=== PATIENT | female | born 2000 | race African-American/Black ===

== ENCOUNTER 2019-11-17 20:22 | Outpatient (CLI) | payer BC, MEDICAID ==
[2019-11-17 21:04] LABS: APPEARANCE,URINE CLOUDY; BILIRUBIN,URINE NEGATIVE (NEGATIVE); COLOR,URINE YELLOW; GLUCOSE, URINE NEGATIVE (NEGATIVE); KETONES,URINE NEGATIVE (NEGATIVE); LEUKOCYTE ESTERASE,URINE LARGE (NEGATIVE); NITRITE,URINE NEGATIVE (NEGATIVE); PROTEIN,URINE NEGATIVE (NEGATIVE); URINE SPECIFIC GRAVITY 1.011; UROBILINOGEN,URINE NEGATIVE mg/dL (<2.0)
[2019-11-17 21:27] LABS: URINE AMPHETAMINES SCREEN NEGATIVE; URINE BARBITURATES SCREEN NEGATIVE; URINE BENZODIAZEPINES SCREEN NEGATIVE; URINE COCAINE SCREEN NEGATIVE; URINE MARIJUANA (THC) SCREEN NEGATIVE; URINE METHADONE SCREEN NEGATIVE; URINE PHENCYCLIDINE SCREEN NEGATIVE
--- NOTE | 2019-11-17 22:03 | Non Stress Test Report ---
Non Stress Test Datetime Report Generated by CPN: 11/17/2019 22:03 DEMOGRAPHIC EGA NST: 39.1 INDICATION Indication for Study (NST) Other: Labor Check URINE RESULTS Urine Blood - NST: Positive MONITORING Monitor Explained: Monitor Explained; Test Explained; Patient Verbalized Understanding Time on Monitor: 11/17/2019 20:50 Time off Monitor: 11/17/2019 21:35 NST Duration: 45 NST INTERVENTIONS NST Interventions: None BABY A: [id number] BABY A Movement : Present Contraction Frequency : occasional FHR Baseline : 150 Accelerations : 15X15 Decelerations : None Variability : Moderate 6-25bpm NST Review: Meets Criteria for Reactive NST NST Review and Verified By : Koki Finch RN NST Results: Reactive NST REPORT Report Trigger: Send Report
== END 2019-11-17 21:43 | disposition home or self-care (01) ==
LOC: LC 20:22
PROVIDERS: ATTEND Obstetrics & Gynecology Gynecology
DX: Z02.83 Encounter for blood-alcohol and blood-drug test (principal); O47.1 False labor at or after 37 completed weeks of gestation; Z3A.39 39 weeks gestation of pregnancy
CPT/HCPCS: 59025; 80307; 81005; 84112

== ENCOUNTER 2019-11-24 16:56 | Inpatient (IN) | payer BC ==
[2019-11-24 17:39] LABS: APPEARANCE,URINE SLIGHTLY-CLOUDY; BILIRUBIN,URINE NEGATIVE (NEGATIVE); COLOR,URINE YELLOW; GLUCOSE, URINE NEGATIVE (NEGATIVE); KETONES,URINE TRACE mg/dL (NEGATIVE); LEUKOCYTE ESTERASE,URINE LARGE (NEGATIVE); NITRITE,URINE NEGATIVE (NEGATIVE); PROTEIN,URINE NEGATIVE (NEGATIVE); URINE SPECIFIC GRAVITY 1.014; UROBILINOGEN,URINE NEGATIVE mg/dL (<2.0)
[2019-11-24 17:57] LABS: URINE AMPHETAMINES SCREEN NEGATIVE; URINE BARBITURATES SCREEN NEGATIVE; URINE BENZODIAZEPINES SCREEN NEGATIVE; URINE COCAINE SCREEN NEGATIVE; URINE MARIJUANA (THC) SCREEN NEGATIVE; URINE METHADONE SCREEN NEGATIVE; URINE PHENCYCLIDINE SCREEN NEGATIVE
[2019-11-24] MEDS ORDERED: PENICILLIN G POTASSIUM 5,000,000 UNIT in DEXTROSE 5%-WATER 100 ML IV ONE (19:51)
[2019-11-24 20:21] LABS: ABSOLUTE EOSINOPHILS # (AUTO) 0.1 10^3/uL (0.0-0.6); ABSOLUTE LYMPHOCYTES (AUTO) 2.1 10^3/uL (0.5-4.7); ABSOLUTE MONOCYTES (AUTO) 0.9 10^3/uL (0.1-1.4); ABSOLUTE NEUT (AUTO) 6.5 10^3/uL (1.7-8.2); BASOPHILS % (AUTO) 0.2 % (0-2); EOSINOPHILS % (AUTO) 0.7 % (0-6); HEMATOCRIT 37.4 % (36.0-47.0); HEMOGLOBIN 12.5 g/dL (12.0-15.5); MEAN CORPUSCULAR HEMOGLOBIN 31.3 pg (27.0-33.4); MEAN CORPUSCULAR HGB CONC 33.5 g/dL (32.0-36.0); MEAN CORPUSCULAR VOLUME 93 fl (80-97); PLATELET COUNT 203 10^3/uL (150-450); RED BLOOD COUNT 4.01 10^6/uL (3.72-5.28); RED CELL DISTRIBUTION WIDTH 15.1 % (11.5-14.0); SEGMENTED NEUTROPHILS % (AUTO) 68.1 % (42-78); TOTAL CELLS COUNTED % (AUTO) 100 %; WHITE BLOOD COUNT 9.6 10^3/uL (4.0-10.5)
[2019-11-24] MEDS ORDERED: MISOPROSTOL 0.2 MG TABLET ONE (20:29)
[2019-11-24] MEDS ORDERED: OXYTOCIN 10 UNIT/ML VIAL ONE (20:29)
[2019-11-24] MEDS ORDERED: LIDOCAINE 1% INJ-PF (10 MG/ML) 30 ML SDV ONE (20:30)
[2019-11-24] MEDS ORDERED: PENICILLIN G-K 5 MILLION UNIT VIAL ONE (20:30)
[2019-11-24] MEDS ORDERED: OXYTOCIN/0.9 % SODIUM CHLORIDE 30 UNIT/500 ML RTUINJ ONE (20:30)
[2019-11-24] MEDS ORDERED: OXYTOCIN/0.9 % SODIUM CHLORIDE 30 UNIT/500 ML RTUINJ IV PRN (20:42)
[2019-11-24] MEDS: RINGERS SOLUTION,LACTATED 1,000 ML IV PRN (20:57)
--- NOTE | 2019-11-24 23:09 | Admission Physical ---
Datetime Report Generated by CPN: 11/24/2019 23:08 CURRENT ADMISSION Chief Complaint: Uterine Contractions Indication for Induction: Post Dates Admit Impression : Term, Intrauterine Admit Impression- Other: early labor Admit Plan: Admit to Unit; Initiate Labor Augmentation Protocol ALLERGIES Medication Allergies: No Medication Allergies: No Known Allergies (11/17/2019) Latex: No Latex Allergies OBSTETRICAL HISTORY EDC: 11/23/2019 00:00 : 1 Para: 0 Term: 0 : 0 SAB: 0 IAB: 0 Ectopic: 0 Livin Cesareans: 0 VBACs: 0 Multiple Births: 0 Gestational Diabetes: No Rh Sensitization: No Incompetent Cervix: No JEFF: No Infertility: No ART Treatment: No Uterine Anomaly: No IUGR: No Hx Previous C/S: No Macrosomia: No Hx Loss/Stillborn: No PIH: No Hx : No Placenta Previa/Abruption: No Depression/PP Depression: No PTL/PROM: No Post Hemorrhage: No Current Procedures: Ultrasound Obstetrical History Comments: G1: current SEE RECORDS Alcohol: No Marijuana : No Cocaine: No Other Illicit Drugs: No Cigarettes: Never Smoker. [id number] MEDICAL HISTORY Diabetes: No Blood Transfusion: No Pulmonary Disease (Asthma, TB): Yes Breast Disease: No Hypertension: No [place] Surgery: No Heart Disease: No Hosp/Surgery: No Autoimmune Disorder: No Anesthetic Complications: No Kidney Disease: No Abnormal Pap Smear: No Neuro/Epilepsy: No Psychiatric Disorders: No Other Medical Diseases: No Hepatitis/Liver Disease: No Significant Family History: No Varicosities/Phlebitis: No Trauma/Violence : No Thyroid Dysfunction: No Medical History Comments: asthma INFECTIOUS HISTORY Gonorrhea: Yes Genital Herpes: Yes Chlamydia: Yes Tuberculosis: No Syphilis: Unknown Hepatitis: Unknown HIV/AIDS Exposure: No Rash or Viral Illness: No HPV: No Infectious History Comments: Trichamonas@ 36 weeks; HSV labia on 11/01/2019. GC/ CHlam PHYSICAL EXAM General: Normal HEENT: Normal Neurologic: Normal Thyroid: Normal Heart: Normal Lungs: Normal Breast: Normal Back: Normal Abdomen: Normal Genitourinary Exam: Normal Extremities: Normal DTRs: Normal Pelvic Type: Adequate Vital Signs: Reviewed; Within Normal Limits VAGINAL EXAM Dilatation: 3 Effacement: 50 Station: -2 MEMBRANES Pooling: Negative Membranes: Intact FETUS A EGA: 40.1 Monitoring: External US FHR- Baseline: 150 Variability: Moderate 6-25bpm Accelerations: 15X15 Decelerations: None FHR Category: Category I Estimated Weight (gm): 3700 Presentation: Vertex Admit Comment: explained to pt that she has made some change to cervix during labor check. offerred to let her go home and walk more then return versus staying and augmentating her early labor. She elects to remain for augmentation with pitocin. PLANS FOR LABOR AND DELIVERY Labor and Delivery: None Pain Management: Epidural Feeding Preference: Breast Benefit of Breast Feed Discussed: Yes Circumcision: N/A INFORMED CONSENT Signature: with User ID: [email or web address]
[2019-11-24] MEDS ORDERED: EPHEDRINE SULFATE INJ 50 MG/1 ML AMPULE ONE (23:23)
[2019-11-24] MEDS ORDERED: ROPIVACAINE HCL 0.2% INJ/PF (2 MG/ML) 20 ML SDV ONE (23:24)
[2019-11-24] MEDS ORDERED: FENTANYL/BUPIVACAINE/NS/PF 300 MCG/150 ML RTUINJ EPI ONE (23:24)
[2019-11-25] MEDS ORDERED: FENTANYL CITRATE INJ/PF 100 MCG/2 ML AMPUL ONE (00:45)
[2019-11-25] MEDS ORDERED: PENICILLIN G-K 5 MILLION UNIT VIAL ONE ×2 (01:13→05:36)
[2019-11-25] MEDS: PENICILLIN G POTASSIUM 2,500,000 UNIT in DEXTROSE 5%-WATER 50 ML IV SCH ×2 (01:25→05:44)
[2019-11-25] MEDS: RINGERS SOLUTION,LACTATED 1,000 ML IV PRN (01:26)
[2019-11-25] MEDS ORDERED: DIPH/PERTUSS(ACELL)/TETANUS VAC/PF 0.5 ML SYR (>=10YO) IM PRN (07:12)
[2019-11-25] MEDS ORDERED: PROMETHAZINE HCL 25 MG SUPP.RECT PR PRN (07:12)
[2019-11-25] MEDS ORDERED: ACETAMINOPHEN WITH CODEINE #3 TABLET PO PRN ×2 (07:12)
[2019-11-25] MEDS ORDERED: PSEUDOEPHEDRINE HCL 30 MG TABLET PO PRN (07:12)
[2019-11-25] MEDS ORDERED: DIBUCAINE 1% OINTMENT 28 GM TP PRN (07:12)
[2019-11-25] MEDS ORDERED: PROMETHAZINE HCL 25 MG TABLET PO PRN (07:12)
[2019-11-25] MEDS ORDERED: DIPHENHYDRAMINE HCL 25 MG CAPSULE PO PRN (07:12)
[2019-11-25] MEDS ORDERED: NA PHOS,M-B/NA PHOS,DI-BA (ADULT) 133 ML ENEMA PR PRN (07:12)
[2019-11-25] MEDS ORDERED: ZOLPIDEM TARTRATE 5 MG TABLET PO PRN (07:12)
[2019-11-25] MEDS ORDERED: GLYCERIN/WITCH HAZEL LEAF 1 EACH MED..WIPE TP PRN (07:12)
[2019-11-25] MEDS ORDERED: MAGNESIUM HYDROXIDE SUSP 30 ML UDCUP PO PRN (07:12)
[2019-11-25] MEDS ORDERED: PROMETHAZINE HCL INJ 25 MG/1 ML VIAL IV PRN (07:12)
[2019-11-25] MEDS ORDERED: MEASLES,MUMPS&RUBELLA VACC/PF 0.5 ML VIAL SUBCUT PRN (07:12)
[2019-11-25] MEDS ORDERED: ACETAMINOPHEN 650 MG SUPP.RECT PR PRN (07:12)
[2019-11-25] MEDS ORDERED: OXYTOCIN/0.9 % SODIUM CHLORIDE 30 UNIT/500 ML RTUINJ IV PRN (07:12)
[2019-11-25] MEDS ORDERED: BENZOCAINE/MENTHOL AEROSOL SPRAY 56 ML TOP PRN (07:12)
--- NOTE | 2019-11-25 07:30 | Warning Signs in Babies ---
VOD Warning Signs Datetime Report Generated by [facility]: 11/25/2019 07:29 VOD#608 -Warning Signs in Babies: Needs to be viewed. (11/17/2019 20:31:Alejandra Hopkins RN)
--- NOTE | 2019-11-25 10:07 | Warning Signs in Babies ---
VOD Warning Signs Datetime Report Generated by [facility]: 11/25/2019 10:07 VOD#608 -Warning Signs in Babies: Viewed with Parent(s)/Family (11/17/2019 20:31:Alejandra Hopkins RN)
--- NOTE | 2019-11-25 10:07 | Delivery Summary ---
Del Sum A-C Datetime Report Generated by CPN: 11/25/2019 10:07 DELIVERY PERSONNEL DELIVERY PERSONNEL: [id number] Delivery Doctor:: Didi Vallejo MD Labor and Delivery Nurse:: Peggy Jackson RN Nursery Nurse:: Lindsey Fuentes RN Video Game Animator/FAMILY MEDICINE PHYSICIAN: Monica Ross, ST MATERNAL INFORMATION Delivery Anesthesia: Epidural Medications After Delivery: Pitocin 30 Units in 500ml NS/D5W Estimated Blood Loss (ml): 250 Delivery QBL: 150 Maternal Complications: None LABOR SUMMARY EDC: 11/23/2019 00:00 No. Babies in Womb: 1 Attempted: No Labor Anesthesia: Epidural LABOR INFORMATION Reason for Induction: Not Applicable Onset of Labor: 11/24/2019 20:57 Complete Dilatation: 11/25/2019 04:38 Oxytocin: Augmentation Group B Beta Strep: positive Antibiotics # of Doses: 3 Antibiotics Time of Last Dose: 11/25/2019 05:44 Name of Antibiotic Given: PCN Steroids Given: None Reason Steroids Not Administered: Not Applicable MEMBRANES Membranes Rupture Method: Artificial Rupture of Membranes: 11/25/2019 04:46 Length of Rupture (hr): 2.18 Amniotic Fluid Color: Clear Amniotic Fluid Amount: Small Amniotic Fluid Odor: Normal STAGES OF LABOR Stage 1 hr: 7 Stage 1 min: 41 Stage 2 hr: 2 Stage 2 min: 19 Stage 3 hr: 0 Stage 3 min: 3 Total Time in Labor hr: 10 Total Time in Labor min: 3 VAGINAL DELIVERY Episiotomy: None Laceration #1: None Laceration Extension #1: N/A Other Laceration: labial abrasion Laceration Repair: Not Applicable Sponge Count Correct: N/A Sharps Count Correct: N/A CSECTION DELIVERY Primary Indication: N/A Secondary Indication: N/A CSection Incidence: N/A Labor: N/A Elective: N/A CSection Incision: N/A BABY A INFORMATION Infant Delivery Date/Time: 11/25/2019 06:57 Method of Delivery: Vaginal Nurse Controlled Delivery: No Born in Route : No : N/A Forceps: N/A Vacuum Extraction: N/A Shoulder Dystocia : No PRESENTATION/POSITION BABY A Presentation: Cephalic Cephalic Presentation: Vertex Vertex Position: Left Occipital Anterior Breech Presentation: N/A PLACENTA INFORMATION BABY A Placenta Delivery Time : 11/25/2019 07:00 Placenta Method of Delivery: Spontaneous Placenta Status: Delivered SCORES BABY A Heart Rate 1 min: >100 bpm Resp Effort 1 min: Good Cry Reflex Irritability 1 min: Cough or Sneeze or Pulls Away Muscle Tone 1 min: Active Motion Color 1 min: Blue/Pale Resuscitation Effort 1 min: Tactile Stimulation SCORE 1 MIN: 8 Heart Rate 5 min: >100 bpm Resp Effort 5 min: Good Cry Reflex Irritability 5 min: Cough or Sneeze or Pulls Away Muscle Tone 5 min: Active Motion Color 5 min: Body [place], Extremities Blue Resuscitation Effort 5 min: Tactile Stimulation SCORE 5 MIN: 9 INFANT INFORMATION BABY A Gestational Age at Delivery: 40.2 Gestational Status: Full Term- 39- 40.6 Weeks Infant Outcome : Liveborn Condition : Stable Infant Sex: Female IDENTIFICATION BABY A Infant Verification Date/Time: 11/25/2019 08:04 ID Band Number: [id number] Mother's Name Verified: Yes RN Verifying : Ant Hopkins RN; MckenzieSuzette Sofíawilfrido RN WEIGHT/LENGTH BABY A Birthweight (gm): 3357 Infant Weight (lb): 7 Infant Weight (oz): 6 Length (in): 19.50 Length (cm): 49.53 CORD INFORMATION BABY A No. Cord Vessels: 3 Nuchal Cord : N/A Cord Blood Taken: Yes-For Eval (Mom's Blood Type - or O+) Infant Suction: Mouth; Nose ASSESSMENT BABY A Skin to Skin: Yes BABY B INFORMATION : N/A SIGNATURES Signature: with User ID: [email or web address]
--- NOTE | 2019-11-25 10:07 | Birth Certificate Data ---
Cert Data Datetime Report Generated by CPN: 11/25/2019 10:07 CERTIFICATE DATA 47a. Care: Yes (11/17/2019 20:31:Alivia Manuel RN) 47b. Date of First Visit: 07/09/2019 00:00 (11/17/2019 20:31:Alivia Manuel RN) 47c. Date of Last Visit: 11/15/2019 00:00 (11/17/2019 20:31:Alivia Manuel RN) 48a. Number of Prev Live Births: 0 (11/17/2019 20:31:Alivia Manuel RN) 48b. Now Livin (11/17/2019 20:31:Alivia Manuel RN) 48c. Live Births Now : 0 (11/17/2019 20:31: system process) 48e. Losses: 0 (11/17/2019 20:31:Alivia Manuel RN) RISK FACTORS IN THIS 49a. Diabetes: No (11/17/2019 20:31:Alivia Manuel RN) 49b. Hypertension: No (11/17/2019 20:31:Alivia Manuel RN) 49c. Previous Births: 0 (11/17/2019 20:31:Alivia Manuel RN) 49d. Stillborns: No (11/17/2019 20:31:Alivia Manuel RN) 49d. IUGR: No (11/17/2019 20:31:Alivia Manuel RN) 49e. Infertility Treatment: No (11/17/2019 20:31:Alivia Manuel RN) 49f. Previous Cesareans: 0 (11/17/2019 20:31:Alivia Manuel RN) Mother's Height 50b. Height Inches: 62 (11/25/2019 07:09:QS system process) Mother's Weight 51b. Weight at Delivery (lbs): 196 (11/25/2019 07:09:QS system process) Infections Present/Treated 53a. Gonorrhea: Yes (11/17/2019 20:31:Alivia Manuel RN) Results this Hospital Visit : Negative (11/17/2019 20:31:Peggy Jackson RN) 53b. Syphilis: Unknown (11/17/2019 20:31:Alivia Manuel RN) 53c. Chlamydia: Yes (11/17/2019 20:31:Alivia Manuel RN) Results this Hospital Visit: Negative (11/17/2019 20:31:Peggy Jackson RN) 53d. Hepatitis B: No (Annotations: Data stored by Simin on behalf of user) (11/17/2019 20:31:Alejandra Hopkins RN) Results this Hospital Visit: Negative (11/17/2019 20:31:Alivia Manuel RN) 53e. Hepatitis C: Negative (11/17/2019 20:31:Peggy Jackson RN) 53h. Mother Tested for HBsAG: Yes (11/17/2019 20:31:Alejandra Hopkins RN) 53i. Date Tested: 05/10/2019 00:00 (11/17/2019 20:31:Peggy Jackson RN) 53j. Test Result: Negative (11/17/2019 20:31:Alivia Manuel, RN) Obstetric Procedures 54a, b, c. Obstetric Procedures: Ultrasound (11/17/2019 20:31:Alivia Goldsmithahan, RN) Onset of Labor 56a. PROM >12 Hrs: 2.18 (11/25/2019 04:46:QS system process) 56b. Precipitous Labor <3 Hrs: 10 (11/17/2019 20:31:QS system process) 56c. Prolonged Labor > 20 Hrs: 10 (11/17/2019 20:31:QS system process) 57a. Induction of Labor: Augmentation (11/17/2019 20:31:Hortensia Colin RN) 57c. Non-Vertex Presentation A: Vertex (11/17/2019 20:31:Hortensia Colin RN) 57d. Steroids - Lung Mat: None (11/17/2019 20:31:Hortensia Colin RN) 57d. Steroids - Lung Mat: Not Applicable (11/17/2019 20:31:Hortensia Colin RN) 57e. Antibiotics During Labor: 11/25/2019 05:44 (11/17/2019 20:31:Hortensia Colin RN) 57f. Mat [place] or Temp >100.4: 98.7 (11/17/2019 20:31:Alejandra Hopkins RN) 57g. Moderate/Heavy Meconium: Clear (11/25/2019 04:46:Peggy Jackson RN) 57h. Intolerance of Labor: N/A (11/17/2019 20:31:Hortensia Colin RN) : N/A (11/17/2019 20:31:Hortensia Colin RN) 57i. Epidural/Spinal Anesthesia: Epidural (11/17/2019 20:31:Hortensia Colin RN) Method of Delivery 58a. Forceps - Unsuccessful A: N/A (11/17/2019 20:31:Peggy Jackson RN) 58b. Vacuum - Unsuccessful A: N/A (11/17/2019 20:31:Peggy Jackson RN) 58c. Presentation at 58c. Presentation at - A : Vertex (11/17/2019 20:31:Hortensia Colin RN) 58c. Presentation at - A : N/A (11/17/2019 20:31:Hortensia Colin RN) 58c. Presentation at - A : Cephalic (11/25/2019 00:33:Peggy Jackson RN) Final Route and Method of Del 58d. Baby A Route/Delivery: Vaginal (11/17/2019 20:31:Hortensia Colin RN) 58e. Trial of Labor Attempted: No (11/17/2019 20:31:Hortensia Colin RN) 58e. Trial of Labor Attempted A: N/A (11/17/2019 20:31:Hortensia Colin RN) 58e. Trial of Labor Attempted B: N/A (11/17/2019 20:31:Hortensia Dixie RN) Maternal Morbidity 59b. 3rd or 4th Degree Lacs: None (11/17/2019 20:31:Didi Vallejo MD ([facility])) 59b. 3rd or 4th Degree Lacs: labial abrasion (11/17/2019 20:31:Alejandra Hopkins RN) Birthweight Baby A: 3357 (11/17/2019 20:31:Alejandra Hopkins RN) 60a. Pounds : 7 (11/17/2019 20:31:QS system process) 60b. Ounces: 6 (11/17/2019 20:31:QS system process) 61. GA at Delivery Baby A: 40.2 (11/17/2019 20:31:Hortensia Colin RN) : Full Term- 39- 40.6 Weeks (11/17/2019 20:31:QS system process) 62a. 5 Minute Baby A: 9 (11/17/2019 20:31:QS system process)
[2019-11-25] MEDS ORDERED: PRENATAL VITAMIN W DHA CAPSULE PO ONE (10:08)
[2019-11-25] MEDS ORDERED: FAMOTIDINE 20 MG TABLET ONE (10:08)
[2019-11-25] MEDS ORDERED: DOCUSATE SODIUM 100 MG CAPSULE ONE (10:08)
[2019-11-25] MEDS ORDERED: SENNOSIDES/DOCUSATE 8.6-50 MG 1 EACH TABLET ONE (10:08)
[2019-11-25] MEDS ORDERED: FERROUS SULFATE 325 MG TABLET PO ONE (10:08)
[2019-11-25] MEDS: FERROUS SULFATE 325 MG TABLET PO SCH ×2 (10:10→18:04)
[2019-11-25] MEDS: DOCUSATE SODIUM 100 MG CAPSULE PO SCH ×2 (10:10→18:04)
[2019-11-25] MEDS: FAMOTIDINE 20 MG TABLET PO SCH ×2 (10:10→22:11)
[2019-11-25] MEDS: SENNOSIDES/DOCUSATE 8.6-50 MG 1 EACH TABLET PO SCH (10:10)
[2019-11-25] MEDS: PRENATAL VITAMIN W DHA CAPSULE PO SCH (10:10)
[2019-11-25] MEDS: IBUPROFEN 800 MG TABLET PO SCH ×2 (13:55→22:11)
[2019-11-25] MEDS: VALACYCLOVIR HCL 500 MG TABLET PO SCH (13:56)
[2019-11-26] MEDS: PENICILLIN G POTASSIUM 2,500,000 UNIT in DEXTROSE 5%-WATER 50 ML IV SCH (02:21)
[2019-11-26] MEDS: IBUPROFEN 800 MG TABLET PO SCH ×3 (06:02→21:31)
[2019-11-26 07:22] LABS: HEMATOCRIT 32.3 % (36.0-47.0); HEMOGLOBIN 10.9 g/dL (12.0-15.5); MEAN CORPUSCULAR HEMOGLOBIN 31.5 pg (27.0-33.4); MEAN CORPUSCULAR HGB CONC 33.8 g/dL (32.0-36.0); MEAN CORPUSCULAR VOLUME 93 fl (80-97); PLATELET COUNT 186 10^3/uL (150-450); RED BLOOD COUNT 3.47 10^6/uL (3.72-5.28); RED CELL DISTRIBUTION WIDTH 15.2 % (11.5-14.0); WHITE BLOOD COUNT 13.8 10^3/uL (4.0-10.5)
[2019-11-26] MEDS: VALACYCLOVIR HCL 500 MG TABLET PO SCH (09:15)
[2019-11-26] MEDS: PRENATAL VITAMIN W DHA CAPSULE PO SCH (09:15)
[2019-11-26] MEDS: DOCUSATE SODIUM 100 MG CAPSULE PO SCH ×2 (09:15→17:21)
[2019-11-26] MEDS: FERROUS SULFATE 325 MG TABLET PO SCH ×2 (09:15→17:21)
[2019-11-26] MEDS: SENNOSIDES/DOCUSATE 8.6-50 MG 1 EACH TABLET PO SCH (09:16)
[2019-11-26] MEDS: FAMOTIDINE 20 MG TABLET PO SCH ×2 (09:16→21:31)
--- NOTE | 2019-11-26 12:04 | PDOC PROGRESS REPORT ---
Subjective-OB Progress Note for:: 11/26/19 - PP Day #1, doing well, O+, rubella immune, UOB, voiding Physical Exam (OB) Vital Signs: Temp Pulse Resp BP Pulse Ox 97.5 F 87 15 101/50 L 100 11/26/19 07:58 11/26/19 07:58 11/26/19 07:58 11/26/19 07:58 11/26/19 07:58 Intake & Output 11/25/19 11/26/19 11/27/19 06:59 06:59 06:59 Intake Total 560 700 Balance 560 700 Weight 89.1 kg - General General Appearance: Appears well, Alert In distress: None - PIH/Pre-Eclampsia DTR's: 2 + Clonus: Negative Headache: Absent Epigastric Pain: No Visual Changes: No - Maternal Morbidity 59. Maternal Morbidity (serious complications experinced by the mother associated with labor and delivery: None of the above - Lochia Lochia Amount: Scant < 10 ml Lochia Color: Rubra/Red - Abdomen Description: Soft Hernia Present: No Fundal Description: Firm, Midline Fundal Height: u/u - u/2 - Respiratory Respiratory Status: No respiratory distress - Abdominal Distension: No distension Tenderness: Nontender - Genitourinary Genitourinary Note: voiding - Extremities Upper extremity: Normal inspection Lower extremities: Normal inspection - Neurological Cognition: Normal Orientation: AAOx4 - Skin Skin Temperature: Warm Skin Moisture: Dry Objective-Diagnostic Laboratory: 11/26/19 06:50 11/26/19 06:50 WBC 13.8 H RBC 3.47 L Hgb 10.9 L Hct 32.3 L MCV 93 MCH 31.5 MCHC 33.8 RDW 15.2 H Plt Count 186 Assessment and Plan(PN) Plan:: Routine PP orders, ambulation encouraged - Time Spent with Patient Time with patient: Less than 15 minutes Medications reviewed and adjusted accordingly: Yes - Disposition Anticipated Discharge Disposition: Home, Self Care Anticipated Discharge Timeframe: within 24 hours
[2019-11-27] MEDS: IBUPROFEN 800 MG TABLET PO SCH ×2 (05:20→15:28)
[2019-11-27 08:05] VITALS: BP 104/63
[2019-11-27] MEDS: PRENATAL VITAMIN W DHA CAPSULE PO SCH (10:54)
[2019-11-27] MEDS: DOCUSATE SODIUM 100 MG CAPSULE PO SCH (10:54)
[2019-11-27] MEDS: VALACYCLOVIR HCL 500 MG TABLET PO SCH (10:54)
[2019-11-27] MEDS: SENNOSIDES/DOCUSATE 8.6-50 MG 1 EACH TABLET PO SCH (10:54)
[2019-11-27] MEDS: FERROUS SULFATE 325 MG TABLET PO SCH (10:54)
[2019-11-27] MEDS: FAMOTIDINE 20 MG TABLET PO SCH (10:55)
--- NOTE | 2019-11-27 13:48 | PDOC DISCHARGE SUMMARY ---
Impression - Admit/DC Date/PCP Admission Date/Primary Care Provider: 11/24/19 19:40 DONNA RAMIREZ MD Discharge Date: 11/27/19 - Discharge Diagnosis (1) Normal vaginal delivery Is this a current diagnosis for this admission?: Yes - Additional Information Discharge Diet: Regular Discharge Activity: Balance Activity w/Rest, Pelvic Rest Referrals: DONNA RAMIREZ MD [Primary Care Provider] - (Follow up in 4 weeks for your post evaluation. Call the office and make an appointment. ) Prescriptions: Ibuprofen [Motrin 800 mg Tablet] 800 mg PO Q8HP PRN #60 tablet PRN Reason: Home Medications: Prenat 115/Iron Fum/Folic/Dss [ 19 Tablet] 1 tab PO DAILY 11/17/19 Ibuprofen [Motrin 800 mg Tablet] 800 mg PO Q8HP PRN #60 tablet 11/27/19 Hospital Course 59. Maternal Morbidity (serious complications experinced by the mother associated with labor and delivery: None of the above Results Laboratory Results: WBC 13.8 10^3/uL (4.0-10.5) H 11/26/19 06:50 RBC 3.47 10^6/uL (3.72-5.28) L 11/26/19 06:50 Hgb 10.9 g/dL (12.0-15.5) L 11/26/19 06:50 Hct 32.3 % (36.0-47.0) L 11/26/19 06:50 MCV 93 fl (80-97) 11/26/19 06:50 MCH 31.5 pg (27.0-33.4) 11/26/19 06:50 MCHC 33.8 g/dL (32.0-36.0) 11/26/19 06:50 RDW 15.2 % (11.5-14.0) H 11/26/19 06:50 Plt Count 186 10^3/uL (150-450) 11/26/19 06:50 Lymph % (Auto) 22.0 % (13-45) 11/24/19 20:09 [place] % (Auto) 9.0 % (3-13) 11/24/19 20:09 Eos % (Auto) 0.7 % (0-6) 11/24/19 20:09 Baso % (Auto) 0.2 % (0-2) 11/24/19 20:09 Absolute Neuts (auto) 6.5 10^3/uL (1.7-8.2) 11/24/19 20:09 Absolute Lymphs (auto) 2.1 10^3/uL (0.5-4.7) 11/24/19 20:09 Absolute Monos (auto) 0.9 10^3/uL (0.1-1.4) 11/24/19 20:09 Absolute Eos (auto) 0.1 10^3/uL (0.0-0.6) 11/24/19 20:09 Absolute Basos (auto) 0.0 10^3/uL (0.0-0.2) 11/24/19 20:09 Seg Neutrophils % 68.1 % (42-78) 11/24/19 20:09 Urine Color YELLOW 11/24/19 17:05 Urine Appearance SLIGHTLY-CLOUDY 11/24/19 17:05 Urine pH 6.0 (5.0-9.0) 11/24/19 17:05 Ur Specific [place] 1.014 11/24/19 17:05 Urine Protein NEGATIVE mg/dL (NEGATIVE) 11/24/19 17:05 Urine Glucose (UA) NEGATIVE mg/dL (NEGATIVE) 11/24/19 17:05 Urine Ketones TRACE mg/dL (NEGATIVE) H 11/24/19 17:05 Urine Blood NEGATIVE (NEGATIVE) 11/24/19 17:05 Urine Nitrite NEGATIVE (NEGATIVE) 11/24/19 17:05 Urine Bilirubin NEGATIVE (NEGATIVE) 11/24/19 17:05 Urine Urobilinogen NEGATIVE mg/dL (<2.0) 11/24/19 17:05 Ur Leukocyte Esterase LARGE (NEGATIVE) H 11/24/19 17:05 Urine Ascorbic Acid NEGATIVE (NEGATIVE) 11/24/19 17:05 Membranes Rupture NEGATIVE (NEGATIVE) 11/24/19 17:11 Urine Opiates Screen NEGATIVE 11/24/19 17:05 Urine Methadone Screen NEGATIVE 11/24/19 17:05 Ur Barbiturates Screen NEGATIVE 11/24/19 17:05 Ur Phencyclidine Scrn NEGATIVE 11/24/19 17:05 Ur Amphetamines Screen NEGATIVE 11/24/19 17:05 U Benzodiazepines Scrn NEGATIVE 11/24/19 17:05 Urine Cocaine Screen NEGATIVE 11/24/19 17:05 U Marijuana (THC) Screen NEGATIVE 11/24/19 17:05 RPR NONREACTIVE (NONREACTIVE) 11/24/19 20:09 Blood Type O POSITIVE 11/24/19 20:09 Antibody Screen NEGATIVE 11/24/19 20:09 Plan Plan of Treatment: follow up in 4 weeks at [facility] for post check
== END 2019-11-27 15:43 | disposition home or self-care (01) | DRG 806 ==
LOC: LC 16:56 → LR 19:40 → 2S 11-25 10:32
PROVIDERS: ADMIT Obstetrics & Gynecology; ATTEND Obstetrics & Gynecology
PROC: 10E0XZZ Delivery of Products of Conception, External Approach (ICD-10-PCS; principal; 2019-11-25)
PROC: 3E0234Z Introduction of Serum, Toxoid and Vaccine into Muscle, Percutaneous Approach (ICD-10-PCS; 2019-11-25)
DX: O48.0 Post-term pregnancy (principal); O98.32 Other infections with a predominantly sexual mode of transmission complicating childbirth; Z37.0 Single live birth; O70.0 First degree perineal laceration during delivery; O99.824 Streptococcus B carrier state complicating childbirth; A60.00 Herpesviral infection of urogenital system, unspecified; Z3A.40 40 weeks gestation of pregnancy; Z79.899 Other long term (current) drug therapy; Z86.19 Personal history of other infectious and parasitic diseases; Z23 Encounter for immunization
CPT/HCPCS: 1967; 36415; 80307; 81005; 84112; 85025; 85027; 86592; 86695; 86696; 86850; 86900; 86901; 90707; 94760; J2540; J2590; J2795; J3010; J3490; J7060